=== PATIENT | male | born 1960 | race Caucasian/White ===

== ENCOUNTER → 2017-09-18 | Outpatient (CLI) | payer OTHER ==
[~2017-09-18] MED LIST: OMNIPAQUE 350 MG/ML, 100ML BOTTLE ONE
[2017-09-18 10:48] LABS: CREATININE 0.76 mg/dL (0.7-1.3)
== END | disposition home or self-care (01) ==
LOC: RAD 08:27
PROVIDERS: ATTEND Ophthalmology
DX: G31.89 Other specified degenerative diseases of nervous system (principal); H53.40 Unspecified visual field defects
CPT/HCPCS: 36415; 70470; 82565; Q9967

== ENCOUNTER → 2017-10-12 | Outpatient (CLI) | payer OTHER ==
[~2017-10-12] MED LIST changes: +GADOBUTROL 10 MMOL/10 ML PFS ONE; -OMNIPAQUE 350 MG/ML, 100ML BOTTLE ONE
== END | disposition home or self-care (01) ==
LOC: CFH 12:44
PROVIDERS: ATTEND Psychiatry & Neurology Neurology
DX: R90.82 White matter disease, unspecified (principal); H53.461 Homonymous bilateral field defects, right side; I63.3 Cerebral infarction due to thrombosis of cerebral arteries
CPT/HCPCS: 70543; 70553; A9585

== ENCOUNTER → 2017-11-29 | Outpatient (CLI) | payer OTHER | END | disposition home or self-care (01) | LOC: CFH 14:27 | PROVIDERS: ATTEND Neurological Surgery | DX: R90.82 White matter disease, unspecified (principal); Q28.3 Other malformations of cerebral vessels | CPT/HCPCS: 70553; A9585 ==

== ENCOUNTER → 2018-11-03 | Outpatient (CLI) | payer OTHER | END | disposition home or self-care (01) | LOC: CFH 14:45 | PROVIDERS: ATTEND Psychiatry & Neurology Neurology | DX: I63.332 Cerebral infarction due to thrombosis of left posterior cerebral artery (principal); G31.9 Degenerative disease of nervous system, unspecified; H54.7 Unspecified visual loss | CPT/HCPCS: 70553; A9585 ==